=== PATIENT | female | born 1995 | race Caucasian/White ===

== ENCOUNTER 2016-11-03 12:20 | Emergency (ER) | payer MEDICARE, MEDICAID ==
[~2016-11-03] VITALS: Ht 167.6 cm; Wt 46.8 kg
[~2016-11-03 12:20] MED LIST: BIRTH CONTROL PILLS; CEFTIN500 MG PO; COLACE 100100 MG/CAP PO; LEVAQUIN 5500 MG/TA1 PO; LORATADINE10 MG PO; LORTAB 5/500 501 TAB PO; MACROBID 1100 MG/CAP PO; MIRALAX PA17 GM/Dose PO; NAPROSYN500 MG PO; NO HOME MEDICATIONS; NORCO 325 MG-51 TAB PO; OMNICEF 300MG300 MG PO; PERIACTIN 4MG TA4 MG PO; PROTONIX20 MG PO; PROVENTIL0.09 MG/A1 IH; PYRIDIUM 100MG100 MG PO; RISPERDAL M-TAB1 MG PO; VENTOLIN0.09 MG IH; ZITHROMAX 250M250 MG PO; ZOFRAN 4MG T4 MG/TAB PO; ZOLOFT25 MG PO; [UNRECOGNIZED DRUG - OTHER]
[2016-11-03 12:24] VITALS: BP 114/68; PULSE 87; TEMP 99
[2016-11-03 13:30] LABS: BASO # 0.1 (0.0-0.2); BASO % 0.7 % (0.0-2.0); EOS # 0.2 (0.0-0.7); EOS % 2.2 % (0-4.0); GRAN # 4.6 (1.4-6.5); GRAN % 60.9 % (42.2-75.2); HEMATOCRIT 40.9 % (37.0-47.0); HEMOGLOBIN 14.2 g/dl (12.5-16.0); LYMPH # 2.3 (1.2-3.4); LYMPH % 29.9 % (20.0-51.0); MEAN CELL VOLUME 90 fl (80.0-100.0); MEAN CORPUSCULAR HEMOGLOBIN 31 pg (27.0-31.0); MEAN CORPUSCULAR HGB CONC 35 g/dl (33.0-37.0); MEAN PLATELET VOLUME 10.5 fl (7.4-10.4); MONO # 0.5 (0.1-0.6); MONO % 6.2 % (1.7-9.3); PLATELET COUNT 174 K/mm3 (130-400); RED BLOOD COUNT 4.56 M/mm3 (4.10-5.30); REDCELL DISTRIBUTION WIDTH-CV 12.7 % (11.5-14.5); WHITE BLOOD COUNT 7.6 K/mm3 (4.8-10.8)
[2016-11-03 13:41] LABS: ADJUSTED CALCIUM 9.1 mg/dL (8.4-10.2); ALANINE AMINOTRANSFERASE 21 U/L (9-52); ALBUMIN 4.8 gm/dL (3.5-5.0); ALKALINE PHOSPHATASE 83 U/L (50-136); ANION GAP 12 mmol/L (7-16); BILIRUBIN,TOTAL 1.1 mg/dL (0.0-1.0); BLOOD UREA NITROGEN 13 mg/dL (7-17); CALCIUM 9.7 mg/dL (8.4-10.2); CARBON DIOXIDE 21 mmol/L (22-30); CHLORIDE 106 mmol/L (98-107); CREATININE, serum 0.71 mg/dL (0.52-1.25); GLUCOSE 77 mg/dL (74-106); POTASSIUM 3.9 mmol/L (3.4-5.0); SODIUM 139 mmol/L (137-145); TOTAL PROTEIN 7.6 gm/dL (6.4-8.2)
[2016-11-03 13:42] LABS: ACETAMINOPHEN < 10 ug/mL (10-30); SALICYLATE < 1.0 mg/dL
[2016-11-03 14:06] LABS: AMPHETAMINE URINE NEGATIVE; BARBITURATES URINE NEGATIVE; BENZODIAZEPINES URINE NEGATIVE; BUPRENORPHINE URINE NEGATIVE; METHADONE URINE NEGATIVE; OPIATES URINE NEGATIVE; OXYCODONE URINE NEGATIVE; PHENCYCLIDINE URINE NEGATIVE; PROPOXYPHENE URINE NEGATIVE; THC CANNABINOIDS URINE NEGATIVE
== END 2016-11-03 16:02 | disposition left against medical advice (07) ==
LOC: COL.ER 12:20
PROVIDERS: Nurse Practitioner
DX: F29 Unspecified psychosis not due to a substance or known physiological condition (principal); Z53.21 Procedure and treatment not carried out due to patient leaving prior to being seen by health care provider

== ENCOUNTER 2016-11-03 21:40 | Observation (INO) | payer MEDICARE, MEDICAID ==
[~2016-11-03] VITALS: Ht 137.2 cm; Wt 70.4 kg
[2016-11-03] VITALS (32 sets, daily range): BP systolic 105; BP diastolic 69; PULSE 72; TEMP 97.8; O2SAT 98–100
[2016-11-04] VITALS (91 sets, daily range): BP systolic 91–108; BP diastolic 42–67; PULSE 59–88; TEMP 97.1–98.4; O2SAT 95–99
[2016-11-05] VITALS: BP 90/45; PULSE 68; TEMP 97.8
[2016-11-05 04:00] VITALS: BP 103/50; PULSE 62; TEMP 97.8
[2016-11-05 08:00] VITALS: PULSE 68; TEMP 98
[2016-11-05 11:40] VITALS: BP 109/69; PULSE 91; TEMP 98.1
[2016-11-05 15:35] VITALS: BP 104/60; PULSE 68; TEMP 98.1
[2016-11-05 20:00] VITALS: BP 106/65; PULSE 72; TEMP 97.8
[2016-11-06] VITALS: BP 95/48; PULSE 78; TEMP 98.1
[2016-11-06 04:00] VITALS: BP 85/44; PULSE 67; TEMP 97.8
[2016-11-06 08:20] VITALS: BP 100/54; PULSE 69; TEMP 97.8
== END 2016-11-06 12:15 ==
LOC: COL.ER 21:40 → ICU 22:47
DX: F30.2 Manic episode, severe with psychotic symptoms (principal); Z87.891 Personal history of nicotine dependence
CPT/HCPCS: 90791-AI; G0378; J1200; J1630; J7030

== ENCOUNTER 2017-06-03 16:54 | Emergency (ER) | payer MEDICAID ==
[~2017-06-03] VITALS: Ht 167.6 cm; Wt 80.2 kg
[2017-06-03 16:59] VITALS: BP 136/78; PULSE 72; TEMP 98.3
== END 2017-06-03 19:34 | disposition home or self-care (01) ==
LOC: COL.ER 16:54
DX: Z04.8 Encounter for examination and observation for other specified reasons (principal); F31.9 Bipolar disorder, unspecified; Z90.49 Acquired absence of other specified parts of digestive tract; Z96.0 Presence of urogenital implants

== ENCOUNTER 2017-10-04 20:33 | Emergency (ER) | payer MEDICAID ==
[~2017-10-04] VITALS: Ht 167.6 cm; Wt 72.7 kg
[2017-10-04 20:36] VITALS: TEMP 98.4
[2017-10-04] MEDS ORDERED: ADDERALL5 MG (21:12)
[2017-10-04 21:25] LABS: BASO # 0.1 (0.0-0.2); BASO % 0.9 % (0.0-2.0); EOS # 0.3 (0.0-0.7); GRAN # 3.9 (1.4-6.5); GRAN % 50.8 % (42.2-75.2); HEMATOCRIT 40.7 % (37.0-47.0); HEMOGLOBIN 13.9 g/dl (12.5-16.0); LYMPH # 2.8 (1.2-3.4); MEAN CELL VOLUME 87 fl (80.0-100.0); MEAN CORPUSCULAR HEMOGLOBIN 30 pg (27.0-31.0); MEAN CORPUSCULAR HGB CONC 34 g/dl (33.0-37.0); MEAN PLATELET VOLUME 10.7 fl (7.4-10.4); MONO # 0.5 (0.1-0.6); PLATELET COUNT 201 K/mm3 (130-400); RED BLOOD COUNT 4.66 M/mm3 (4.10-5.30); REDCELL DISTRIBUTION WIDTH-CV 12.6 % (11.5-14.5)
[2017-10-04 21:41] LABS: ACETAMINOPHEN < 10 ug/mL (10-30); ALANINE AMINOTRANSFERASE 28 U/L (9-52); ALCOHOL(ethanol),MEDICAL < 10 mg/dL; ALKALINE PHOSPHATASE 87 U/L (50-136); ANION GAP 14 mmol/L (7-16); AST,SGOT 17 U/L (15-37); BILIRUBIN,TOTAL 0.2 mg/dL (0.0-1.0); BLOOD UREA NITROGEN 11 mg/dL (7-17); CALCIUM 9.5 mg/dL (8.4-10.2); CARBON DIOXIDE 20 mmol/L (22-30); CHLORIDE 105 mmol/L (98-107); CREATININE, serum 0.72 mg/dL (0.52-1.25); GLUCOSE 85 mg/dL (74-106); POTASSIUM 4.1 mmol/L (3.4-5.0); SALICYLATE < 1.0 mg/dL; SODIUM 139 mmol/L (137-145)
[2017-10-04 21:43] LABS: COLLECTION METHOD CLEAN CATCH
[2017-10-04 21:51] LABS: MUCOUS Present /lpf; PH 5 (5-8); SQUAMOUS EPITHELIAL 0-2 /hpf; URINE APPEARANCE Clear; URINE BACTERIA Rare /hpf; URINE BILIRUBIN Negative (NEGATIVE); URINE BLOOD Negative (NEGATIVE); URINE COLOR Yellow; URINE GLUCOSE Negative (NEGATIVE); URINE KETONE Negative (NEGATIVE); URINE LEUKOCYTE ESTERASE Negative (NEGATIVE); URINE NITRATE Negative (NEGATIVE); URINE PROTEIN(semi-quant) 1+ (NEGATIVE); URINE UROBILINOGEN Negative (NEGATIVE)
[2017-10-04 21:59] LABS: TRICYCLIC ANTIDEPRESS URINE NEGATIVE
[2017-10-05] MEDS ORDERED: DEPO-PROVE150 MG/1 M IM (05:58)
[2017-10-05 17:25] VITALS: BP 94/42; PULSE 68
== END 2017-10-05 18:51 ==
LOC: COL.ER 20:33
PROVIDERS: Nurse Practitioner
DX: F91.8 Other conduct disorders (principal); F41.9 Anxiety disorder, unspecified; F90.9 Attention-deficit hyperactivity disorder, unspecified type; F31.9 Bipolar disorder, unspecified; Z90.49 Acquired absence of other specified parts of digestive tract; F17.210 Nicotine dependence, cigarettes, uncomplicated; F12.90 Cannabis use, unspecified, uncomplicated

== ENCOUNTER 2018-11-23 10:11 | Emergency (ER) | payer MEDICARE, MEDICAID ==
[~2018-11-23] VITALS: Ht 157.5 cm; Wt 59.1 kg
[~2018-11-23 10:11] MED LIST changes: +ADDERALL5 MG; +DEPO-PROVE150 MG/1 M IM
[2018-11-23 10:19] VITALS: TEMP 98.4
[2018-11-23 11:33] LABS: COLLECTION METHOD CLEAN CATCH
[2018-11-23 11:38] LABS: PH 6 (5-8); SQUAMOUS EPITHELIAL 0-2 /hpf; URINE APPEARANCE Clear; URINE BACTERIA None Seen /hpf; URINE BILIRUBIN Negative (NEGATIVE); URINE BLOOD 2+ (NEGATIVE); URINE COLOR Colorless; URINE GLUCOSE Negative (NEGATIVE); URINE KETONE Negative (NEGATIVE); URINE LEUKOCYTE ESTERASE Negative (NEGATIVE); URINE NITRATE Negative (NEGATIVE); URINE PROTEIN(semi-quant) Negative (NEGATIVE); URINE RBC 0-2 /hpf; URINE UROBILINOGEN Negative (NEGATIVE)
[2018-11-23 13:34] VITALS: BP 129/82; PULSE 67
== END 2018-11-23 13:40 | disposition home or self-care (01) ==
LOC: COL.ER 10:11
PROVIDERS: Nurse Practitioner Primary Care
DX: N89.8 Other specified noninflammatory disorders of vagina (principal); F31.9 Bipolar disorder, unspecified; F17.210 Nicotine dependence, cigarettes, uncomplicated; F12.90 Cannabis use, unspecified, uncomplicated; Z90.49 Acquired absence of other specified parts of digestive tract

== ENCOUNTER → 2020-01-29 | Outpatient (CLI) | payer MEDICARE, MEDICAID | LOC: ZCOL.LAB 16:28 | DX: Z20.828 Contact with and (suspected) exposure to other viral communicable diseases (principal) ==

== ENCOUNTER → 2020-04-08 | Outpatient (CLI) | payer MEDICARE, MEDICAID | LOC: MC.RAD 09:50 | DX: N64.4 Mastodynia (principal) ==

== ENCOUNTER 2021-03-25 10:43 | Emergency (ER) | payer MEDICARE, MEDICAID ==
[~2021-03-25] VITALS: Ht 167.6 cm; Wt 76.4 kg
[2021-03-25 11:11] VITALS: BP 114/76; PULSE 82; TEMP 98.1
== END 2021-03-25 14:30 | disposition left against medical advice (07) ==
LOC: COL.ER 10:43
DX: R10.2 Pelvic and perineal pain (principal)

== ENCOUNTER 2021-09-20 03:02 | Emergency (ER) | payer MEDICARE, MEDICAID ==
[~2021-09-20] VITALS: Ht 170.2 cm; Wt 68.2 kg
[2021-09-20 03:40] LABS: COLLECTION METHOD CLEAN CATCH
[2021-09-20 03:46] LABS: BASO # 0.1 K/mm3 (0.0-0.2); BASO % 0.8 % (0.0-2.0); EOS # 0.2 K/mm3 (0.0-0.7); EOS % 1.7 % (0.0-4.0); GRAN # 6.5 K/mm3 (1.4-6.5); GRAN % 62.9 % (42.2-75.2); HEMATOCRIT 42.3 % (37.0-47.0); HEMOGLOBIN 14.2 g/dl (12.5-16.0); LYMPH # 2.9 K/mm3 (1.2-3.4); LYMPH % 27.6 % (20.0-51.0); MEAN CELL VOLUME 88 fl (80.0-100.0); MEAN CORPUSCULAR HEMOGLOBIN 30 pg (27-31); MEAN CORPUSCULAR HGB CONC 34 g/dl (33.0-37.0); MEAN PLATELET VOLUME 10.4 fl (7.4-10.4); MONO # 0.7 K/mm3 (0.1-0.6); MONO % 6.6 % (1.7-9.3); PLATELET COUNT 231 K/mm3 (130-400); RED BLOOD COUNT 4.82 M/mm3 (4.10-5.30); REDCELL DISTRIBUTION WIDTH-CV 12.6 % (11.5-14.5)
[2021-09-20 03:48] LABS: MUCOUS Present (NOT PRESENT); PH 5 (5-8); URINE APPEARANCE Hazy (CLEAR/HAZY); URINE BACTERIA Rare /hpf (NONE SEEN); URINE BILIRUBIN Negative (NEGATIVE); URINE BLOOD 2+ (NEGATIVE); URINE COLOR Yellow (YELLOW); URINE GLUCOSE Negative (NEGATIVE); URINE KETONE Negative (NEGATIVE); URINE LEUKOCYTE ESTERASE Negative (NEGATIVE); URINE NITRATE Negative (NEGATIVE); URINE PROTEIN(semi-quant) Negative (NEGATIVE); URINE UROBILINOGEN Negative (NEGATIVE)
[2021-09-20 03:57] LABS: TRICYCLIC ANTIDEPRESS URINE NEGATIVE
[2021-09-20 04:00] LABS: ALANINE AMINOTRANSFERASE 63 U/L (0-55); ALBUMIN 3.8 gm/dL (3.5-5.0); ALKALINE PHOSPHATASE 98 U/L (40-150); ANION GAP 12 mmol/L (7-16); AST,SGOT 36 U/L (5-34); BILIRUBIN,TOTAL 0.3 mg/dL (0.2-1.2); BLOOD UREA NITROGEN 10 mg/dL (7-19); CALCIUM 9.2 mg/dL (8.4-10.2); CARBON DIOXIDE 18 mmol/L (22-29); CHLORIDE 110 mmol/L (98-107); CREATININE, serum 0.75 mg/dL (0.57-1.11); GLUCOSE 93 mg/dL (70-99); POTASSIUM 3.8 mmol/L (3.5-4.5); SODIUM 140 mmol/L (136-145); TOTAL PROTEIN 7.1 gm/dL (6.2-8.1)
[2021-09-20 04:03] LABS: ACETAMINOPHEN < 1.0 ug/mL (10-30); ALCOHOL(ethanol),MEDICAL < 10 mg/dL (0-10); SALICYLATE < 5.0 mg/dL (15.0-30.0)
[2021-09-20 04:20] LABS: TSH w REFLEX 1.281 uIU/mL (0.350-4.940)
[2021-09-20] MEDS ORDERED: REXULTI4 MG PO (10:07)
[2021-09-20] MEDS ORDERED: DOXYCYCLINE 10100 MG PO (10:39)
[2021-09-21] MEDS ORDERED: SPRINTEC 35 MCG1 TAB PO (08:54)
[2021-09-21 10:10] VITALS: BP 120/70; PULSE 73; TEMP 97.8
== END 2021-09-21 13:15 ==
LOC: COL.ER 03:02
PROVIDERS: Emergency Medicine
DX: F23 Brief psychotic disorder (principal); Z86.19 Personal history of other infectious and parasitic diseases; Z20.822 Contact with and (suspected) exposure to COVID-19